=== PATIENT | female | born 1975 | race Hispanic/Latino ===

== ENCOUNTER 2023-10-21 05:08 | Emergency (ER) | payer BC, OTHER ==
[~2023-10-21] VITALS: Ht 162.6 cm; Wt 70.3 kg
[2023-10-21 05:34] LABS: BASOPHILS # (AUTO) 0.05 K/uL (0.00-0.20); BASOPHILS % (AUTO) 0.7 % (0.0-5.0); EOSINOPHILS # (AUTO) 0.31 K/uL (0.00-0.70); EOSINOPHILS % (AUTO) 4.4 % (0.0-8.0); HEMATOCRIT 38.6 % (36-48); IMMATURE GRANULOCYTE ABSOLUTE 0.03 K/uL (0-1); LYMPHOCYTES # (AUTO) 1.4 K/uL (1.0-4.8); LYMPHOCYTES % (AUTO) 19.1 % (21.0-51.0); MEAN CORPUSCULAR HEMOGLOBIN 29.3 pg (27.0-33.0); MEAN CORPUSCULAR HGB CONC 34.2 g/dL (32.0-36.0); MEAN CORPUSCULAR VOLUME 85.6 fL (79-99); MONOCYTES # (AUTO) 0.5 K/uL (0.1-1.0); MONOCYTES % (AUTO) 6.7 % (3.0-13.0); NEUTROPHILS # (AUTO) 4.8 K/uL (1.8-7.7); NEUTROPHILS % (AUTO) 68.7 % (40.0-77.0); PLATELET COUNT (AUTO) 321 K/uL (130-400); RED BLOOD CELL COUNT(AUTO) 4.51 MIL/uL (4.00-5.50); RED CELL DISTRIBUTION WIDTH 12.7 % (11.0-15.5); WHITE BLOOD COUNT (AUTO) 7.1 K/uL (4.8-10.8)
[2023-10-21] MEDS: NITROGLYCERIN 0.4 MG SL TAB SL PRN (05:40)
[2023-10-21] MEDS: ASPIRIN 81MG CHEW TAB PO ONE (05:43)
[2023-10-21 05:46] LABS: CREATININE 0.7 mg/dL (0.5-1.5); POTASSIUM 3.4 mmol/L (3.5-5.1)
[2023-10-21 05:51] LABS: ALBUMIN 3.5 g/dL (3.5-5.0); BILIRUBIN,TOTAL 0.3 mg/dL (0.2-1.0); TOTAL PROTEIN, SERUM 7.7 g/dL (6.0-8.3)
[2023-10-21] MEDS ORDERED: NITROGLYCERIN 0.4 MG SL TAB SL PRN (06:00)
[2023-10-21] MEDS: KETOROLAC 30MG VIAL (30MG/ML) IM ONE (06:19)
[2023-10-21] MEDS: KETOROLAC 30MG VIAL (30MG/ML) IVP ONE (07:01)
[2023-10-21] MEDS ORDERED: CYCL-309 PO (09:47)
[2023-10-21] MEDS ORDERED: FAMO-136 PO (09:47)
[2023-10-21 10:04] VITALS: BP 147/88; PULSE 82; RESP 16; O2SAT 96
== END 2023-10-21 10:09 | disposition home or self-care (01) ==
LOC: EDH 05:08
DX: R12 Heartburn (principal); I10 Essential (primary) hypertension; M54.2 Cervicalgia
CPT/HCPCS: 99285; 71045; 84484 ×2; 80053; 83880; 85025; 85378; 36415; 72040; 96372; 93005; J1885